=== PATIENT | male | born 1970 | race Caucasian/White ===

== ENCOUNTER 2019-08-10 12:55 | Emergency (ER) | payer BC ==
[~2019-08-10] VITALS: Ht 170.2 cm; Wt 147.9 kg
[~2019-08-10 12:55] MED LIST: BG MC; GLU850 PO; LAC PO; MAC100 PO; METOPROLOL TART25 M1 PO; NEXIUM20 MG PO; ZES20 PO; ZOC10 PO
[2019-08-10 13:02] VITALS: Ht 170.2 cm; Wt 147.9 kg
[2019-08-10 15:27] VITALS: BP 153/98
== END 2019-08-10 15:27 | disposition home or self-care (01) ==
LOC: ED 12:55
DX: G56.21 Lesion of ulnar nerve, right upper limb (principal)